=== PATIENT | female | born 1980 | race Caucasian/White ===

== ENCOUNTER → 2018-09-10 | Outpatient (REF) | payer OTHER ==
[2018-09-10 19:12] LABS: PERCENT SATURATION 32.5 % (13.2-45.0)
== END ==
LOC: M LAB REF 18:13
PROVIDERS: ATTEND Internal Medicine
DX: R53.83 Other fatigue (principal); D50.9 Iron deficiency anemia, unspecified

== ENCOUNTER → 2020-12-01 | Outpatient (REF) | payer BC ==
[2020-12-01 12:53] LABS: THYROXINE (T4) 7.8 UG/DL (4.5-12.0)
[2020-12-01 13:03] LABS: PROLACTIN 9.7 NG/ML; THYROID PEROXIDASE ANTIBODY > 1300.0 U/ML (<60.0)
[2020-12-01 13:49] LABS: FREE T3 2.5 PG/ML (2.2-4.0)
== END ==
LOC: M LAB REF 11:34
PROVIDERS: ATTEND Internal Medicine
DX: N93.9 Abnormal uterine and vaginal bleeding, unspecified (principal)

== ENCOUNTER → 2022-08-09 | Outpatient (REF) | payer OTHER ==
[2022-08-09 13:07] LABS: FERRITIN 30.1 NG/ML (7.3-270.7)
[2022-08-09 15:31] LABS: IMMUNOGLOBULIN A 138.6 MG/DL (40-350)
== END ==
LOC: M LAB REF 11:58
PROVIDERS: ATTEND Internal Medicine
DX: D50.9 Iron deficiency anemia, unspecified (principal); R53.83 Other fatigue; R10.2 Pelvic and perineal pain; R79.89 Other specified abnormal findings of blood chemistry

== ENCOUNTER → 2022-08-26 | Outpatient (CLI) | payer BC, OTHER | LOC: M WHC 14:04 | PROVIDERS: ATTEND Internal Medicine | DX: R10.2 Pelvic and perineal pain (principal); R14.0 Abdominal distension (gaseous); D25.0 Submucous leiomyoma of uterus ==

== ENCOUNTER → 2023-02-10 | Outpatient (REF) | payer OTHER, BC ==
[2023-02-10 12:52] LABS: PERCENT SATURATION 23.7 % (13.2-45.0)
[2023-02-10 12:53] LABS: FERRITIN 43.7 NG/ML (7.3-270.7)
== END ==
LOC: M LAB REF 12:10
PROVIDERS: ATTEND Internal Medicine
DX: D50.9 Iron deficiency anemia, unspecified (principal); R53.83 Other fatigue; R79.89 Other specified abnormal findings of blood chemistry

== ENCOUNTER → 2023-03-27 | Outpatient (CLI) | payer BC, OTHER | LOC: M WHC 10:42 | PROVIDERS: ATTEND Internal Medicine | DX: N83.201 Unspecified ovarian cyst, right side (principal); D25.1 Intramural leiomyoma of uterus; N80.202 Endometriosis of left fallopian tube, unspecified depth ==

== ENCOUNTER → 2023-05-02 | Outpatient (CLI) | payer BC, OTHER ==
[2023-05-02 13:54] LABS: BASO % 0.7 % (0.0-1.0); EOS # 0.1 10^3/uL (0.0-0.5); EOS % 1.5 % (0.0-3.0); HEMATOCRIT 37.9 % (36.0-47.0); HEMOGLOBIN 12.6 g/dl (12.0-15.5); LYMPH # 1.3 10^3/uL (1.5-5.0); LYMPH % 24.6 % (24.0-44.0); MEAN CORPUSCULAR HEMOGLOBIN 30.7 pg (27.0-33.0); MEAN CORPUSCULAR HGB CONC 33.2 g/dl (32.0-36.5); MEAN CORPUSCULAR VOLUME 92.4 fl (80.0-96.0); MONO # 0.4 10^3/uL (0.0-0.8); MONO % 7.5 % (2.0-8.0); NEUTROPHILS # 3.5 10^3/uL (1.5-8.5); NEUTROPHILS % 65.3 % (36.0-66.0); PLATELET COUNT, AUTOMATED 296 10^3/uL (150-450); WHITE BLOOD COUNT 5.4 10^3/uL (4.0-10.0)
[2023-05-02 14:27] LABS: FREE T4 0.96 NG/DL (0.89-1.76); THYROID STIMULATING HORMONE 2.756 uIU/ML (0.55-4.78)
== END ==
LOC: M PLALAB 11:00
PROVIDERS: ATTEND Nurse Practitioner Family
DX: N94.10 Unspecified dyspareunia (principal); N92.0 Excessive and frequent menstruation with regular cycle

== ENCOUNTER → 2023-05-10 | Outpatient (CLI) | payer BC, OTHER | LOC: M WHC 09:36 | PROVIDERS: ATTEND Nurse Practitioner Family | DX: N83.202 Unspecified ovarian cyst, left side (principal); N92.0 Excessive and frequent menstruation with regular cycle; N83.201 Unspecified ovarian cyst, right side; D25.9 Leiomyoma of uterus, unspecified ==

== ENCOUNTER → 2023-08-16 | Outpatient (CLI) | payer BC, OTHER | LOC: M WHC 13:24 | PROVIDERS: ATTEND Nurse Practitioner Family | DX: R92.8 Other abnormal and inconclusive findings on diagnostic imaging of breast (principal); N83.202 Unspecified ovarian cyst, left side; D25.1 Intramural leiomyoma of uterus; R92.333 Mammographic heterogeneous density, bilateral breasts; N60.11 Diffuse cystic mastopathy of right breast | CPT/HCPCS: 76641; 76830; 76856; 77065; G0279 ==

== ENCOUNTER → 2023-09-18 | Outpatient (REF) | payer BC, OTHER ==
[2023-09-20 16:09] LABS: HE4 53.3 pmol/L (0.0-63.6)
== END ==
LOC: M SFHCCLAY 08:53
PROVIDERS: ATTEND Nurse Practitioner Family
DX: N83.202 Unspecified ovarian cyst, left side (principal)

== ENCOUNTER → 2023-12-07 | Outpatient (CLI) | payer BC ==
[~2023-12-07] MED LIST: IRON27TA2 PO; L-NO1TBD6 PO; MELA5TAB20 PO; REST0.05 OU
== END ==
LOC: M WHC 09:18
PROVIDERS: ATTEND Obstetrics & Gynecology
DX: N83.202 Unspecified ovarian cyst, left side (principal); D25.9 Leiomyoma of uterus, unspecified

== ENCOUNTER → 2024-08-02 | Outpatient (REF) | payer BC, OTHER ==
[2024-08-02 13:59] LABS: PERCENT SATURATION 23.6 % (13.2-45.0)
[2024-08-02 14:03] LABS: FERRITIN 36.1 NG/ML (7.3-270.7)
== END ==
LOC: M LAB REF 12:09
PROVIDERS: ATTEND Internal Medicine
DX: D50.9 Iron deficiency anemia, unspecified (principal)

== ENCOUNTER → 2024-08-13 | Outpatient (CLI) | payer BC | LOC: M WHC 09:30 | PROVIDERS: ATTEND Nurse Practitioner Family | DX: Z12.31 Encounter for screening mammogram for malignant neoplasm of breast (principal); R92.333 Mammographic heterogeneous density, bilateral breasts ==

== ENCOUNTER → 2024-08-13 | Outpatient (REF) | payer BC ==
[2024-08-16 10:57] LABS: HPV APTIMA Not Detected (Not Detected)
== END ==
LOC: M SFHCWAGY 12:14
PROVIDERS: ATTEND Nurse Practitioner Family
DX: R87.615 Unsatisfactory cytologic smear of cervix (principal); Z11.51 Encounter for screening for human papillomavirus (HPV)
CPT/HCPCS: 87624; G0123

== ENCOUNTER → 2024-08-22 | Outpatient (CLI) | payer BC | LOC: M WHC 10:30 | PROVIDERS: ATTEND Nurse Practitioner Family | DX: Z12.31 Encounter for screening mammogram for malignant neoplasm of breast (principal); N60.02 Solitary cyst of left breast | CPT/HCPCS: 77065; G0279 ==

== ENCOUNTER → 2024-12-25 | Outpatient (CLI) | payer BC | LOC: M WHC 06:44 | PROVIDERS: ATTEND Nurse Practitioner Family | DX: D25.9 Leiomyoma of uterus, unspecified (principal) ==

== ENCOUNTER → 2025-08-20 | Outpatient (CLI) | payer BC | LOC: M WHC 09:16 | PROVIDERS: ATTEND Nurse Practitioner Family | DX: Z12.31 Encounter for screening mammogram for malignant neoplasm of breast (principal) ==